=== PATIENT | male | born 1965 ===

== ENCOUNTER 2023-04-17 18:40 | Emergency (ER) | payer BC ==
[2023-04-17] MEDS ORDERED: Dextrose 5% in Water 1,000 ML IV ONE (18:41)
[2023-04-17] MEDS ORDERED: 50% Dextrose in Water 50 ML Syringe ONE (18:49)
== END 2023-04-17 19:15 | disposition left against medical advice (07) ==
LOC: LL.ED 18:40
DX: E11.649 Type 2 diabetes mellitus with hypoglycemia without coma (principal)
CPT/HCPCS: 82947; 99284; J3490; J7060